=== PATIENT | female | born 1975 | race Hispanic/Latino ===

== ENCOUNTER 2018-12-09 20:13 | Emergency (ER) | payer SELFPAY ==
[~2018-12-09] VITALS: Ht 165.1 cm; Wt 104.3 kg
[2018-12-09] MEDS ORDERED: KETOROLAC TROMETHAMINE 30 MG/ML VIAL IV STA (20:41)
[2018-12-09] MEDS ORDERED: SODIUM CHLORIDE 0.9% 1000ML 1,000 ML IV SCH (20:45)
[2018-12-09] MEDS ORDERED: SODIUM CHLORIDE 0.9% 1000ML 1,000 ML ONE (21:07)
[2018-12-09] MEDS ORDERED: KETOROLAC TROMETHAMINE 30 MG/ML VIAL ONE (21:07)
[2018-12-09] MEDS ORDERED: OMEPRAZOLE40 MG PO (21:47)
[2018-12-09] MEDS ORDERED: ULTRAM50 MG PO (21:47)
[2018-12-09] MEDS ORDERED: BACTRIM DS TAB1 EACH PO (21:47)
[2018-12-09] MEDS ORDERED: ASPIRIN 81 MG CHEW TAB PO ONE (22:30)
--- NOTE | 2018-12-09 23:14 | Diagnostic Imaging Report ---
EXAM: Right Upper Quadrant Ultrasound INDICATION: Right upper quadrant pain. COMPARISON: None. TECHNIQUE: Transverse and longitudinal images of the right upper abdomen were obtained. FINDINGS: Limited study due to bowel gas. Liver: Size: 17.8 cm in the right midclavicular line, enlarged Appearance: Increased echogenicity, smooth contour Mass: No focal masses Gallbladder: Stones/Sludge: None Wall: No gross thickening. Appearance: No pericholecystic fluid or hydrops. Sonographic Kendrick's Sign: Negative Bile Ducts: Intrahepatic Ducts: No dilatation Extrahepatic Ducts: Common bile duct measures 0.5 cm, no dilatation Pancreas: Not well visualized. Right Kidney: Size: 9.9 cm Echogenicity: Normal Parenchymal thickness: Normal Collecting system: No hydronephrosis Stones: None Cyst/Mass: None Vessels: Aorta: Not well visualized. Inferior Vena Cava: Not well visualized. Main Portal Vein: 0.9 cm, normal size. Flow direction cannot be determined. Free Fluid: No ascites or pleural effusion IMPRESSION: Enlarged steatotic liver. Very limited study. Signed by: Dr. Luigi Lopez MD on 12/09/2018 11:10 PM
--- NOTE | 2018-12-09 23:23 | Diagnostic Imaging Report ---
EXAMINATION: CXR 2 VIEW - HOPD INDICATION: Epigastric pain and nausea. COMPARISON: None FINDINGS: PA and lateral views TUBES and LINES: None. LUNGS: Lungs are well inflated. There is no evidence of pneumonia or pulmonary edema. PLEURA: No pleural effusion or pneumothorax. HEART AND MEDIASTINUM: The cardiomediastinal silhouette is unremarkable. BONES AND SOFT TISSUES: No acute osseous lesion. Soft tissues are unremarkable. UPPER ABDOMEN: No free air under the diaphragm. IMPRESSION: No acute thoracic abnormality. Signed by: Dr. Luigi Lopez MD on 12/09/2018 11:20 PM
== END 2018-12-09 23:00 | disposition home or self-care (01) ==
LOC: FSED 20:13
DX: R10.11 Right upper quadrant pain (principal); R10.13 Epigastric pain; N30.91 Cystitis, unspecified with hematuria; R94.31 Abnormal electrocardiogram [ECG] [EKG]
CPT/HCPCS: 71046; 76705; 80053; 81003; 81025; 85025; 93005; 99284; J1885; J7030